=== PATIENT | female | born 2000 | race Caucasian/White ===

== ENCOUNTER 2024-10-20 00:57 | Emergency (ER) | payer MEDICAID ==
[~2024-10-20] VITALS: Ht 167.6 cm; Wt 81.0 kg
[2024-10-20 01:00] VITALS: BP 127/61; PULSE 83; O2SAT 97
[2024-10-20] MEDS ORDERED: AMOX-580 PO (01:25)
[2024-10-20] MEDS ORDERED: NAPR-56 PO (01:25)
[2024-10-20] MEDS ORDERED: OXYC-145 PO (01:25)
[2024-10-20] MEDS: gabapentin 400mg capsule PO SCH (01:32)
[2024-10-20] MEDS: HYDROcodone/acetaminophen 10/325mg tab PO ONE (01:32)
[2024-10-20 01:33] VITALS: RESP 20
[2024-10-20] MEDS: ketorolac trometh 30MG/ML vial 30 MG/ML VIAL IM ONE (01:33)
[2024-10-20 01:58] VITALS: TEMP 97.7
== END 2024-10-20 02:00 | disposition home or self-care (01) ==
LOC: ER 00:58
DX: K08.89 Other specified disorders of teeth and supporting structures (principal)
CPT/HCPCS: 96372; 99283; J1885

== ENCOUNTER 2025-07-27 23:55 | Emergency (ER) | payer MEDICAID ==
[~2025-07-27] VITALS: Ht 167.6 cm; Wt 87.1 kg
[~2025-07-27 23:55] MED LIST: OXYC-145 PO
[2025-07-28 00:06] VITALS: BP 120/66; PULSE 75; O2SAT 99
--- NOTE | 2025-07-28 00:36 | Physician Documentation ---
HPI ~ General Chief Complaint: Tooth Problem Stated Complaint: DENTAL PAIN Time Seen by MD: 00:36 History of Present Illness HPI Comment 25 year old female presenting to the ED with 1.5 weeks of tooth pain. Per patient she has had pain and swelling on the lateral aspect of the L upper molar. The pain improves with pressing her cheek and worsens with chewing or jaw movement. She had a similar issue with the same tooth several months back, at that time she was successfully treated with antibiotics and LolliCaine and told the tooth may need to be pulled. She has not seen her dentist in several months. She also endorses pain near the TMJ and mild neck pain. Last night she states she felt hot, however does not know her temperature. Medication Reconciliation Allergies: Coded Allergies: No Known Allergies (Unverified , 10/20/24) Scheduled Amox Tr/Potassium Clavulanate (Augmentin 875-125 Tablet), 1 TAB PO Q12H Scheduled PRN Oxycodone HCl/Acetaminophen (Percocet 5-325 mg Tablet), 1 TAB PO QID PRN PRN for pain Past Medical History Smoking Status: Never smoker Review of Systems Constitutional: Denies: fever ENT: Reports: mouth pain, mouth swelling; Denies: throat swelling Physical Exam Vital Signs: Temperature: 98.5, Source: Temporal, Heart Rate: 75, Respiratory Rate: 17, BP: 120/66, Pulse Oximetry: 99, Weight: 87.100 Oxygen Flow Rate: 0 Physical Exam General: Awake and Alert, mildly distressed. Putting pressure on her left cheek. HEENT: Conjunctiva pink, Sclera clear, Mucus Membranes moist. Left periodontal swelling and erythema. Neck: Supple without masses and tenderness. Resp: Unlabored. Progress Results/Orders Results/Orders Completed Orders - BRIANA IGLESIAS MD Amox Tr/Potassium Clavulanate (Augmentin (07/28/25 01:00) Ketorolac Trometh 15mg/Ml Vial (Toradol (07/28/25 01:00) Medications Received in ER Medications (Trade) Dose Ordered Sig/Yasmany Route PRN Reason Start Time Stop Time Status Last Admin Dose Admin (Augmentin 875-125mg tablet) 1 tab ONCE ONCE PO 07/28/25 01:00 07/28/25 01:01 DC 07/28/25 01:13 1 TAB (Toradol injection) 15 mg ONCE ONCE IM 07/28/25 01:00 07/28/25 01:01 DC 07/28/25 01:17 15 MG Vital Signs 07/28/25 07/28/25 07/28/25 00:06 01:09 01:17 Temp 98.5 98.5 Pulse 75 Resp 17 16 B/P (MAP) 120/66 Pulse Ox 99 O2 Flow Rate 0 Medical Decision Making Additional information obtaine: N/A Findings na Differential Dx:Considerations: Include: Alveolar osteitis, Facial Cellulitis, Periapical abscess, Peridontal abscess, Tooth Fracture Additional Comment The patient presents with dental pain. On exam she has findings consistent with a mild dental infection. No evidence of a drainable abscess. No evidence to suggest a dangerous deep space neck infection or Mc's angina. She will be treated with antibiotics, IM Toradol, and ongoing outpatient management. She was encouraged to follow up with a dentist. Departure Disposition: HOME / SELF CARE / HOMELESS Impression: Primary Impression: Dental infection Condition: Stable Discharge Instructions: Dental Pain Referrals: NO PRIMARY CARE PROVIDER (PCP) Prescriptions Amox Tr/Potassium Clavulanate (Augmentin 875-125 Tablet) 1 Each Tablet 1 TAB PO Q12H for 7 Days, #14 TAB Prov: BRIANA IGLESIAS MD 07/28/25 Education Educated: Patient Educated regarding: diagnosis, treatment, need for follow up Signature Scribe Signature: [email or web address] Attestation: BRIANA Hyde MD Jul 28, 2025 00:36
[2025-07-28] MEDS ORDERED: AMOX-117 PO (01:02)
[2025-07-28 01:09] VITALS: TEMP 98.5
[2025-07-28] MEDS: amox tr/potassium clavulanate 875/125mg TAB PO ONE (01:13)
[2025-07-28 01:17] VITALS: RESP 16
[2025-07-28] MEDS: ketorolac trometh 15mg/ml vial 15 MG/ML ML IM ONE (01:17)
== END 2025-07-28 01:18 | disposition home or self-care (01) ==
LOC: ER 23:55
DX: K04.7 Periapical abscess without sinus (principal)
CPT/HCPCS: 96372; 99283; J1885